=== PATIENT | female | born 1980 | race Asian ===

== ENCOUNTER 2017-08-30 01:53 | Emergency (ER) | payer OTHER ==
[~2017-08-30] VITALS: Ht 154.9 cm; Wt 81.9 kg
[2017-08-30 02:58] LABS: MICROSCOPIC INDICATED
[2017-08-30 02:59] LABS: HCG UR SG 1.028 (1.003-1.030)
[2017-08-30 03:13] LABS: BASOPHILS # (AUTO) 0.03 x10^3/uL (0-0.1); BASOPHILS % (AUTO) 0 % (0-1); EOSINOPHILS # (AUTO) 0.08 x10^3/uL (0-0.4); EOSINOPHILS % (AUTO) 1 % (1-7); LYMPHOCYTES # (AUTO) 2.23 x10^3/uL (1-3.4); LYMPHOCYTES % (AUTO) 13 % (22-44); MD NO; MEAN CORPUSCULAR HEMOGLOBIN 27.1 pg (27.0-34.8); MEAN CORPUSCULAR HGB CONC 33.4 g/dL (32.4-35.8); MEAN CORPUSCULAR VOLUME 81.2 fL (80-100); MEAN PLATELET VOLUME 8.1 fL (7.4-10.4); MONOCYTES # (AUTO) 0.35 x10^3/uL (0.2-0.8); MONOCYTES % (AUTO) 2 % (2-9); NEUTROPHILS # (AUTO) 14.48 x10^3/uL (1.8-6.8); NEUTROPHILS % (AUTO) 84 % (42-75); PLATELET COUNT 301 x10^3/uL (130-400); RED BLOOD COUNT 5.82 x10^6/uL (3.82-5.3); RED CELL DISTRIBUTION WIDTH 13.5 % (9.6-15.2)
[2017-08-30 03:16] LABS: CULTURE INDICATED? YES
[2017-08-30] MEDS ORDERED: ONDANSETRON 2MG/ML, 2ML ONE (03:19)
[2017-08-30] MEDS ORDERED: PROMETHAZINE 25 MG/ML, 1ML ONE (03:19)
[2017-08-30] MEDS ORDERED: MORPHINE SULFATE 4 MG/ML, 1ML ONE (03:19)
[2017-08-30] MEDS ORDERED: KETOROLAC 30 MG/1 ML ONE (03:20)
[2017-08-30 03:22] LABS: ALANINE AMINOTRANSFERASE 23 U/L (12-78); ALBUMIN 4.1 g/dL (3.4-5.0); ANION GAP 9 mmol/L (5-15); CALCIUM 9.1 mg/dL (8.5-10.1); CHLORIDE 106 mmol/L (98-107); CREATININE 0.87 mg/dL (0.55-1.02)
[2017-08-30 03:24] LABS: ALKALINE PHOSPHATASE 33 U/L (45-117); BILIRUBIN,TOTAL 0.6 mg/dL (0.2-1.0); TOTAL PROTEIN 8.3 g/dL (6.4-8.2)
[2017-08-30] MEDS ORDERED: PROMETHAZINE 25 MG/ML, 1ML IM ONE (03:30)
[2017-08-30] MEDS ORDERED: MORPHINE SULFATE 4 MG/ML, 1ML IVPush PRN (03:30)
[2017-08-30] MEDS ORDERED: SODIUM CHLORIDE 0.9% 1,000ML IVBOLUS ONE (03:30)
[2017-08-30] MEDS ORDERED: SODIUM CHLORIDE FLUSH 10ML SYR IVF ONE (03:30)
[2017-08-30] MEDS ORDERED: KETOROLAC 30 MG/1 ML IVPush ONE (03:30)
[2017-08-30] MEDS ORDERED: ONDANSETRON ODT 4 MG PO ONE (03:30)
[2017-08-30] MEDS ORDERED: ONDANSETRON ODT 4 MG ONE (03:34)
[2017-08-30] MEDS ORDERED: OMNIPAQUE 350 MG/ML, 100ML BOTTLE ONE (04:18)
[2017-08-30 04:29] VITALS: BP 106/60
== END 2017-08-30 05:06 | disposition home or self-care (01) ==
LOC: ED 04:55
DX: R10.33 Periumbilical pain (principal); R11.2 Nausea with vomiting, unspecified; E86.0 Dehydration
CPT/HCPCS: 36415; 74177; 80053; 81001; 81025; 83690; 85025; 87086; 96372; 96374; 99285; J1885; J2550; J7030; Q0162; Q9967